=== PATIENT | male | born 1955 | race Caucasian/White ===

== ENCOUNTER → 2023-06-13 | Outpatient (CLI) | payer OTHER ==
[2023-06-13 11:50] LABS: CHOL/HDL RATIO 1.7; Cholesterol 135 mg/dL (50-200); HDL Cholesterol 80 mg/dL (>39); LDL/HDL RATIO 0.6; Low Density Lipoprotein Chol 47 mg/dL (0-110); Triglycerides 38 mg/dL (30-160); Very Low Density Lipoprot Chol 7 mg/dL (6-32)
[2023-06-13 12:02] LABS: BASOPHILS ABSOLUTE AUTO 0.07 K/mm3 (0.00-0.23); BASOPHILS PERCENT AUTO 1 % (0-2); EOSINOPHILS ABSOLUTE AUTO 0.14 K/mm3 (0.00-0.68); EOSINOPHILS PERCENT AUTO 2 % (0-6); Hematocrit 44.1 % (37.0-53.0); Hemoglobin 14.5 g/dL (13.5-17.5); IMMATURE GRAN PERCENT AUTO 1 % (0-1); LYMPHOCYTES ABSOLUTE AUTO 2.06 K/mm3 (0.84-5.20); LYMPHOCYTES PERCENT AUTO 22 % (21-46); MONOCYTES ABSOLUTE AUTO 0.66 K/mm3 (0.16-1.47); MONOCYTES PERCENT AUTO 7 % (4-13); Mean Corpuscular HGB 31.8 pg (26.0-34.0); Mean Corpuscular HGB Conc 32.9 g/dL (31.5-36.5); Mean Corpuscular Volume 97 fL (80-100); Mean Platelet Volume 10.2 fL (9.1-12.4); NEUTROPHILS ABSOLUTE AUTO 6.28 K/mm3 (1.96-9.15); NEUTROPHILS PERCENT AUTO 67 % (41-73); Platelet Count 265 K/mm3 (150-400); RDW Coefficient Variation 14.2 % (11.7-14.2); Red Blood Cell Count 4.56 M/mm3 (4.30-5.90); White Blood Cell Count 9.31 K/mm3 (4.00-11.30)
[2023-06-14 09:12] LABS: A/G RATIO 1.3 (1.2-2.2); BILIRUBIN, TOTAL 0.3 mg/dL (0.0-1.2); CALCIUM, SERUM 9.1 mg/dL (8.6-10.2); CREATININE, SERUM 0.95 mg/dL (0.76-1.27); POTASSIUM, SERUM 4.1 mmol/L (3.5-5.2)
== END ==
LOC: LAB 08:17 → LAB SHORT 08:17
PROVIDERS: Nurse Practitioner Family
DX: E78.5 Hyperlipidemia, unspecified (principal); F10.10 Alcohol abuse, uncomplicated
CPT/HCPCS: 36415; 80053; 80061; 85025

== ENCOUNTER → 2023-10-31 | Outpatient (CLI) | payer MEDICARE, OTHER ==
[~2023-10-31] MED LIST: ALBU90OI INH; NAPR220 PO; Norco 5-325 Ta1 EACH PO
== END ==
LOC: LAB SHORT 07:50 → LAB 07:50
DX: R93.89 Abnormal findings on diagnostic imaging of other specified body structures (principal)
CPT/HCPCS: 87116

== ENCOUNTER → 2023-11-01 | Outpatient (CLI) | payer MEDICARE, OTHER | LOC: LAB SHORT 08:45 → LAB 08:45 | DX: R93.89 Abnormal findings on diagnostic imaging of other specified body structures (principal) | CPT/HCPCS: 87116 ==

== ENCOUNTER → 2024-04-17 | Outpatient (CLI) | payer MEDICARE, OTHER | LOC: LAB 07:30 → LAB SHORT 07:30 | DX: R93.89 Abnormal findings on diagnostic imaging of other specified body structures (principal) | CPT/HCPCS: 87102; 87106 ==

== ENCOUNTER → 2024-09-18 | Outpatient (CLI) | payer OTHER | LOC: LAB SHORT 08:00 → LAB 08:00 | DX: B49 Unspecified mycosis (principal) | CPT/HCPCS: 87070; 87102; 87205 ==